=== PATIENT | male | born 1975 ===

== ENCOUNTER 2018-06-20 11:53 | Day surgery (SDC) | payer MEDICARE, OTHER ==
[2018-06-14 14:32] VITALS: BMI 26.6
[~2018-06-20 11:53] MED LIST: SODIUM CHLORIDE 0.9% 1,000 ML IV SCH
[2018-06-20 12:19] VITALS: BP 141/85; PULSE 90; RESP 18; TEMP 98.4
--- NOTE | 2018-06-20 16:13 | P.PCN ---
Preoperative Diagnosis: Symptoms Recurrent syncope Referred by Dr. Bazzi Twelve-lead ECG Sinus mechanism normal IA narrow QRS normal ST segments normal QT interval no delta waves no epsilon waves Tilt table test per protocol Baseline blood pressure 130/80 mmHg Baseline 171 beats a minute patient was tilted upright 70 per protocol there was a mild increase in his blood pressure with normal heart rates no symptoms At the end of the procedure he was laid supine Impression Normal twelve-lead ECG No evidence for neurocardiogenic syncope Disposition: same day
== END 2018-06-20 13:57 | disposition home or self-care (01) ==
LOC: CATHEP 11:53
PROVIDERS: ATTEND Internal Medicine Clinical Cardiac Electrophysiology
DX: R55 Syncope and collapse (principal); R07.89 Other chest pain; F17.210 Nicotine dependence, cigarettes, uncomplicated; Z82.49 Family history of ischemic heart disease and other diseases of the circulatory system; Z79.82 Long term (current) use of aspirin; Z79.899 Other long term (current) drug therapy
CPT/HCPCS: 93660

== ENCOUNTER → 2022-08-31 | Outpatient (CLI) | payer MEDICARE ==
--- NOTE | 2022-08-31 11:18 | XR ---
EXAMINATION TYPE: XR KUB DATE OF EXAM: 08/31/2022 HISTORY: Pain Comparison: None.Single KUB is submitted for interpretation. Findings: Right renal calculi: None Visualized. Right ureteral calculi: None Visualized. Left renal calculi: None Visualized. Left ureteral calculi: None Visualized. Pelvic calcifications: Phleboliths right hemipelvis although there is one calcification which could reflect a calculus in the region of the right UVJ measuring 3.8 mm. Correlate clinically. Bowel gas pattern is unremarkable. No free air. No mass effects. IMPRESSION: 1. As above
== END | disposition home or self-care (01) ==
LOC: RADXRMAIN 10:43
PROVIDERS: ATTEND Urology
DX: N20.0 Calculus of kidney (principal)
CPT/HCPCS: 74018